=== PATIENT | male | born 1950 | race Caucasian/White ===

== ENCOUNTER 2019-08-06 12:53 | Outpatient (REF) | payer OTHER, SELFPAY ==
[2019-08-06 13:25] LABS: Potassium 4.1 mmol/L (3.5-5.1)
[2019-08-06 13:31] LABS: INR 1.9 (0.9-1.1); Prothrombin Time 18.8 sec (9.3-11.0)
== END 2019-08-06 13:13 ==
LOC: LBN 12:53
PROVIDERS: Visit Provider Internal Medicine
DX: I48.20 Chronic atrial fibrillation, unspecified (principal); Z79.01 Long term (current) use of anticoagulants
CPT/HCPCS: 84132; 85610

== ENCOUNTER 2019-09-26 12:06 | Outpatient (REF) | payer OTHER, SELFPAY ==
[2019-09-26 12:43] LABS: INR 1.1 (0.9-1.1); Prothrombin Time 11.4 sec (9.3-11.0)
[2019-09-26 12:54] LABS: Anion Gap 5.7 mmol/L (3-11); BUN 42 mg/dL (7-18); CO2 31.3 mmol/L (21.0-32.0); CREATININE 1.28 mg/dL (0.70-1.30); Calcium 9.1 mg/dL (8.5-10.1); Chloride 103 mmol/L (98-107); Estimated GFR 55.72 (mL/min/1.73m2); Glucose 144 mg/dL (74-106); NT-proBNP 905 pg/mL (<300); Potassium 4.4 mmol/L (3.5-5.1); Sodium 140 mmol/L (136-145)
== END 2019-09-26 12:26 ==
LOC: LBN 12:06
PROVIDERS: PCP Internal Medicine; Visit Provider Internal Medicine Cardiovascular Disease
DX: I31.1 Chronic constrictive pericarditis (principal); E11.9 Type 2 diabetes mellitus without complications; I48.20 Chronic atrial fibrillation, unspecified; I71.4 Abdominal aortic aneurysm, without rupture
CPT/HCPCS: 80048; 83880; 85610

== ENCOUNTER 2019-12-22 08:12 | Outpatient (CLI) | payer OTHER, SELFPAY ==
[2019-12-23 18:35] LABS: COVID-19 RT-PCR UVMMC Result Negative (Negative)
== END 2019-12-22 08:32 ==
PROVIDERS: PCP Internal Medicine; Visit Provider Family Medicine
DX: Z11.59 Encounter for screening for other viral diseases (principal)
CPT/HCPCS: U0003

== ENCOUNTER 2019-12-23 10:45 | Outpatient (RCR) | payer OTHER, SELFPAY | END 2019-12-30 23:59 | disposition home or self-care (01) | LOC: CR 10:45 | PROVIDERS: PCP Internal Medicine; Visit Provider Family Medicine | DX: R69 Illness, unspecified (principal) ==

== ENCOUNTER 2019-12-30 14:14 | Outpatient (RCR) | payer OTHER, SELFPAY | END 2019-12-30 23:59 | disposition home or self-care (01) | LOC: CR 14:14 | PROVIDERS: PCP Internal Medicine; Visit Provider Family Medicine | DX: R69 Illness, unspecified (principal) ==

== ENCOUNTER 2020-01-30 08:00 | Outpatient (RCR) | payer OTHER, SELFPAY | END 2020-01-30 23:59 | disposition home or self-care (01) | LOC: CR 08:00 | PROVIDERS: PCP Internal Medicine; Visit Provider Family Medicine | DX: Z48.812 Encounter for surgical aftercare following surgery on the circulatory system (principal); Z51.89 Encounter for other specified aftercare | CPT/HCPCS: S9472 ==

== ENCOUNTER 2020-03-01 08:00 | Outpatient (RCR) | payer OTHER, SELFPAY | END 2020-03-01 23:59 | disposition home or self-care (01) | LOC: CR 08:00 | PROVIDERS: PCP Internal Medicine; Visit Provider Family Medicine | DX: Z48.812 Encounter for surgical aftercare following surgery on the circulatory system (principal); Z51.89 Encounter for other specified aftercare | CPT/HCPCS: S9472 ==

== ENCOUNTER 2020-03-02 13:23 | Outpatient (RCR) | payer OTHER, SELFPAY | END 2020-03-31 23:59 | disposition home or self-care (01) | LOC: CR 13:23 | PROVIDERS: PCP Internal Medicine; Visit Provider Family Medicine | DX: R69 Illness, unspecified (principal) ==

== ENCOUNTER 2020-03-26 13:51 | Outpatient (RCR) | payer OTHER, SELFPAY | END 2020-03-31 23:59 | disposition home or self-care (01) | LOC: CR 13:51 | PROVIDERS: PCP Internal Medicine; Visit Provider Family Medicine | DX: Z98.890 Other specified postprocedural states (principal); Z51.89 Encounter for other specified aftercare; I31.1 Chronic constrictive pericarditis | CPT/HCPCS: S9472 ==

== ENCOUNTER 2024-02-07 08:46 | Emergency (ER) | payer OTHER, SELFPAY ==
[2024-02-07] VITALS (8 sets, daily range): BP systolic 165–172; BP diastolic 77–78; PULSE 59–61; RESP 18; TEMP 36.2; O2SAT 97–98
--- NOTE | 2024-02-07 09:16 | ED.GENADUL_ITS ---
Discharge Plan Disposition Patient Disposition: Home Condition: Stable Discharge Details Clinical Impression: Headache Primary Care Provider: Virgilio Fink ED Provider: Virgilio Guillermo Home Meds and New Rx's Prescriptions: Continued multivitamin tablet 1 tab PO DAILY atorvastatin 40 mg tablet 40 mg PO DAILY metformin 500 mg tablet 500 mg PO BID metoprolol succinate 100 mg tablet extended release 24 hr 50 mg PO DAILY warfarin 5 mg tablet 5 mg PO DAILY losartan 25 mg tablet 25 mg PO DAILY carboxymethylcellulose sodium 0.5 % dropperette 1 drp OP QID meloxicam 15 mg tablet 15 mg PO DAILY Discharge Instructions Additional Instructions: Your blood work and CAT scan did not show any concerning findings at this time. Follow-up with your primary care provider if the headaches continue If you develop severe worsening headache, fevers, neck stiffness or feel significantly more ill return to the emergency department for reevaluation HPI General Mode of arrival: ambulatory . Date/Time Provider Initiated Documentation: 02/07/24 09:13 . Limitations to Documentation: no limitations . Information obtained by: patient . History of Present Illness 73 year old M presents to the emergency department with the chief complaint of headache, described as moderate, Quality is described as aching, Patient reports no radiation. Patient started experiencing this week(s) (2) and it has been constant. No relieving factors improve symptom(s), No exacerbating factors reported . Patient notes no other symptoms.; denies chest pain, fever/chills and shortness of breath. Patient did receive the following treatments prior to arrival, none Related Data Home Medications ?Medication ?Instructions ?Recorded ?Confirmed atorvastatin 40 mg tablet 40 mg PO DAILY 09/11/18 09/11/18 carboxymethylcellulose sodium 0.5 1 drp ophthalmic (eye) QID 09/11/18 09/11/18 % eye drops in a dropperette losartan 25 mg tablet 25 mg PO DAILY 09/11/18 09/11/18 metformin 500 mg tablet 500 mg PO BID 09/11/18 09/11/18 metoprolol succinate 100 mg 50 mg PO DAILY 09/11/18 09/11/18 tablet,extended release 24 hr multivitamin 1 tab PO DAILY 09/11/18 09/11/18 warfarin 5 mg tablet 5 mg PO DAILY 09/11/18 09/11/18 meloxicam 15 mg tablet 15 mg PO DAILY 10/24/18 10/24/18 Allergies Allergy/AdvReac Type Severity Reaction Status Date / Time No Known Allergies Allergy Verified 10/24/18 14:03 Review of Systems All systems reviewed & are unremarkable except as noted in HPI and below Constitutional Constitutional: Denies chills, Denies fever(s), Reports headache(s) and Denies weakness Eyes Eyes: Denies loss of vision ENT Ears, Nose, Mouth, and Throat: Reports headache(s) Cardiovascular Cardiovascular: Denies chest pain and Denies dyspnea Respiratory Respiratory: Denies cough and Denies dyspnea Gastrointestinal Gastrointestinal: Denies abdominal pain, Denies nausea and Denies vomiting Neurologic Neurologic: Reports headache(s), Denies loss of vision and Denies weakness Exam Const General: no acute distress Orientation: alert HENMT Head: normal to inspection Ears: external ears normal General nose exam: external nose normal Mouth: moist mucous membranes Eyes General: appearance normal, both eyes and all related structures Neck Neck: normal visual inspection Resp Effort & Inspection: normal respiratory effort and able to speak in complete sentences Cardio Rate: regular rate Skin General skin exam: no rashes or lesions noted Neuro General: patient alert and patient oriented x3 Extrem General: normal to inspection Psych Mental Status: mental status grossly normal Medical Decision Making 33-year-old male with a history of A-fib on Coumadin, hypertension, states he gets frequent headaches and migraines throughout his life, comes in with 2 weeks of persistent frontal headache. He denies any vomiting, fevers, neck stiffness, changes in vision. He is ambulatory at arrival with normal gait. He appears well in no distress and localize the pain to the frontal left part of his head. He does not have any reproducible tenderness in the area or over the temporal artery. Cranial nerves II through XII are intact no focal deficits. No meningismus. Given his history of migraines and tension headaches per patient suspect this is the cause of his symptoms but given his age we will send a CBC, CMP, sed rate and given he is on blood thinners and obtain CT head to evaluate for hemorrhage. He has no findings on exam or history to suggest [employer] infection. Labs and imaging unremarkable, patient sleeping on reassessment and awakens easily to voice. He says his headache is completely gone. Still has no meningismus and no focal deficits. Concern for subarachnoid hemorrhage low given the pain started slowly and is not the worst of his life so do not feel LP indicated. He is stable for discharge home follow-up with his PCP return precautions given Differential Diagnosis Differential Diagnosis: Migraine, tension headache, giant cell arteritis Imaging Data Radiologic Study: Attestation: I personally reviewed and interpreted this imaging study as follows: Imaging: CT Scan Radiologist's impression: No acute findings Lab Data Lab results reviewed: Yes I reviewed the patient's lab results. 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 Atrial fibrillation Right shoulder pain Constrictive pericarditis Atrioventricular block Surgical History Cardiac pacemaker in situ Family History Father Heart disease Cancer Mother Cancer Sister Cancer Social History Smoking/Tobacco Use Status: Never Smoking risk assessment performed?: Yes Alcohol Intake: former Drug use: Never Household members: spouse Housing: house Number of Children: 2 current occupation: Previous [employer], then [employer], and now Consultant [employer] What is your relationship status?: Panel score (0-1 are the most socially isolated patients): 1 Seatbelt use: always
[2024-02-07 09:47] LABS: Abs Immature Grans 0.01 10^3/uL (0.0-0.06); Absolute Basophil Count 0.02 10^3/uL (0.0-0.2); Absolute Eosinophil Count 0.15 10^3/uL (0.0-0.7); Absolute Lymphocyte Count 0.99 10^3/uL (1.2-3.4); Absolute Monocyte Count 0.55 10^3/uL (0.1-0.8); Absolute Neutrophil Count 5.32 10^3/uL (1.2-6.7); Basophils % 0.3 %; Eosinophils % 2.1 %; HCT 41.2 % (40.0-50.0); HGB 13.6 g/dL (13.5-17.5); Immature Grans % 0.1 %; Lymphocytes % 14.1 %; MCH 29.6 pg (27.0-33.0); MCV 90 fL (80-95); MPV 11.1 fL (8.0-11.0); Monocytes % 7.8 %; Neutrophils % 75.6 %; Platelet Count 185 10^3/uL (130-400); RDW 13.4 % (11.8-14.1); RDW-SD 43.9 fL; WBC 7.04 10^3/uL (4.4-10.8)
[2024-02-07 09:50] LABS: ESR 10 mm/hr (0-20)
[2024-02-07] MEDS: ACETAMINOPHEN 1,000 MG/100 ML BTL 400 MG IVPB (09:53)
[2024-02-07] MEDS: Prochlorperazine 10 MG/2 ML VIAL 5 MG IVP (09:54)
[2024-02-07] MEDS: Normal Saline 1,000 ML 1000 ML IV (09:54)
[2024-02-07] MEDS: Dexamethasone 10 MG/ML VIAL IVP (09:54)
[2024-02-07 10:01] LABS: INR 1.2 (0.9-1.1); Prothrombin Time 12.3 sec (9.1-11.1)
[2024-02-07 10:05] LABS: ALT 28 U/L (16-63); AST 22 U/L (15-37); Albumin 3.7 g/dL (3.4-5.0); Alkaline Phosphatase 66 U/L (46-116); Anion Gap 6.6 mmol/L (3-11); BUN 24 mg/dL (7-18); Bilirubin, Total 0.94 mg/dL (0.2-1.0); CO2 30.4 mmol/L (21.0-32.0); CREATININE 1.2 mg/dL (0.70-1.30); Calcium 9.5 mg/dL (8.5-10.1); Chloride 102 mmol/L (98-107); Estimated GFR 63.46 (mL/min/1.73m2); Glucose 136 mg/dL (74-106); Magnesium 1.7 mg/dL (1.8-2.4); Sodium 139 mmol/L (136-145); Total Protein 7.6 g/dL (6.4-8.2)
--- NOTE | 2024-02-07 10:10 | DI.CT_ITS ---
Exam(s) CT HEAD WO EXAM: CT HEAD WO CLINICAL HISTORY: headache. TECHNIQUE: Imaging Protocol: Axial computed tomography images with coronal and sagittal reformatted images were created and reviewed COMPARISON: No exams were available for comparison FINDINGS: There are no skull fractures. There is no fluid in the visualized paranasal sinuses. There is no evidence of intracranial hemorrhage, mass effect, or shift of midline structures. There are no extra-axial fluid collections. The ventricles are not enlarged or shifted and there is no blo od within the ventricular system nor within the basal cisterns. IMPRESSION: No acute intracranial findings on this noninfused CT scan of the brain. Called by myself to ER 02/07/2024 10:40 a.m. RADIATION DOSE DELIVERED: Total DLP DATA REPOSITORY: All CT scans at this facility are submitted to the National Radiology Data Registry (NRDR) Dose Index Registry (DIR) with the [employer] (A[employer]). RADIATION OPTIMIZATION: All CT scans at this facility use at least one of these dose optimization te chniques: automated exposure control; mA and/or kV adjustment per patient size (includes targeted exa ms where dose is matched to clinical indication); or iterative reconstruction.
[2024-02-07 10:33] LABS: COVID-19 PCR Negative (Negative); Influenza A PCR Negative (Negative); Influenza B PCR Negative (Negative); RSV PCR Negative (Negative)
[2024-02-07 10:39] LABS: Source Nasopharynx
== END 2024-02-07 11:05 | disposition home or self-care (01) ==
LOC: ER 10:51
PROVIDERS: Emergency Provider Emergency Medicine; PCP Internal Medicine
DX: R51.9 Headache, unspecified (principal); I10 Essential (primary) hypertension; E11.9 Type 2 diabetes mellitus without complications; I48.91 Unspecified atrial fibrillation; Z79.4 Long term (current) use of insulin; Z79.01 Long term (current) use of anticoagulants; Z95.0 Presence of cardiac pacemaker
CPT/HCPCS: 80053; 85652; 87637; 99284; 70450; 83735; 85025; 85610; 85730; J0131; J0780; J1100

== ENCOUNTER 2025-01-22 01:05 | Outpatient (CLI) | payer OTHER, SELFPAY ==
--- NOTE | 2025-01-22 | DI.RAD_ITS ---
Exam(s) XR CERVICAL SPINE COMP 4-5V EXAM: XR CERVICAL SPINE COMP 4-5V CLINICAL HISTORY: CERVICALAGIA,M54.2,[id number]. TECHNIQUE: 2D digital imaging was performed. Six images were obtained. AP, odontoid, lateral and bilateral oblique images were obtained. COMPARISON: No exams were available for comparison FINDINGS: The odontoid is intact. The lateral masses are well aligned. The bones are osteopenic. There is reversal of the normal cervical lordosis. This may be due to muscle spasm or patient positioning. There is disc space narrowing at C4-5 through C7-T1. Endplate osteophytes are seen at multiple levels of the lumbar spine. There are degenerative changes of the facets most marked at C2-3 and C3- C4. No acute fracture or subluxation is present. There is narrowing of the neural foramen bilaterally at C3-C4 and on the left at C4-C5. The cervical thoracic junction is well maintained. The prevertebral soft tissues are unremarkable. Lung apices are clear. IMPRESSION: Moderate cervical spondylosis. DATA REPOSITORY: RADIATION DOSE DELIVERED:
== END 2025-01-22 01:25 ==
PROVIDERS: PCP Internal Medicine; Visit Provider Internal Medicine
DX: M54.2 Cervicalgia (principal); M47.812 Spondylosis without myelopathy or radiculopathy, cervical region
CPT/HCPCS: 72050